=== PATIENT | male | born 1945 | race Caucasian/White ===

== ENCOUNTER 2019-08-03 21:44 | Emergency (ER) | payer MEDICARE, OTHER ==
[~2019-08-03] VITALS: Ht 188 cm; Wt 110.2 kg
[~2019-08-03 21:44] MED LIST: ACDPT PO; ALBU8.5H2 IH; ALLP100T PO; ASP81TEC PO; ATEN-158 PO; ATR20T PO; CHOL10003 PO; CHOL2000 PO; CPAP; CYAN10007 PO; EZET10TA5 PO; FENO145T2 PO; INSU100C4 SQ; INSU100I23 SQ; ISM30TCR PO; LISI1TAB10 PO; LUTE20TA PO; METO-351 PO; MULT-178 PO; OMEG1CAP51 PO; TRM50T PO
--- NOTE | 2019-08-03 22:06 | ED Lower Extremity ---
General Chief Complaint: Lower Extremity Stated Complaint: LEFT LEG SWOLLEN Nursing Triage Note: PT AMB TO [facility] 6 WITH COMPLAINT OF LEFT LEG SWELLING. STATES SWELLING HAS BEEN GOING ON FOR ROUGHLY TWO WEEKS. STATES SWELLING INCREASED TONIGHT AFTER WALKING AROUND. Nursing Sepsis Screen: No Definite Risk Source: patient, spouse Exam Limitations: no limitations History of Present Illness Date Seen by Provider: Aug 03, 2019 Time Seen by Provider: 21:52 Initial Comments Patient presents to ER by private conveyance with chief complaint of 2 weeks of increased swelling worse with gravity better when put up in his left leg. This is tender. He has diabetes and decreased sensation in his feet as well as some chronic loss of the arches. No wounds on his feet. No history of heart failure or swelling in his right leg. No shortness of breath or chest pain. No recent surgeries, periods of immobilization or trauma. No history of clots. 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 He takes medications as prescribed. He has not seen anybody about this yet. Allergies and Home Medications Allergies Coded Allergies: No Known Drug Allergies (Unverified , 09/28/12) Home Medications Acetaminophen/Diphenhydramine 1 Ea Tab, 2 TAB PO HS, (Reported) Allopurinol 100 Mg Tab, 100 MG PO DAILY @ 1200, (Reported) Atorvastatin 20 Mg Tablet, 20 MG PO DAILY @ 1200, (Reported) Cholecalciferol (Vitamin D3) 2,000 Unit Capsule, 2,000 UNIT PO DAILY@1200, (Reported) Fenofibrate,Micronized 145 Mg Tablet, 145 MG PO DAILY @ 1200, (Reported) Hctz/Lisinopril 1 Tab Tablet, 1 TAB PO DAILY @ 1200, (Reported) 20-25MG TABLET Insulin Glargine,Hum.rec.anlog 300 Units/3 Ml Soln, 80 UNITS SQ HS, (Reported) Insulin Human Lispro 300 U/3 Ml Insuln.pen, 15 UNITS SQ BREAKFAST AND LUNCH, (Reported) Insulin Human Lispro 300 U/3 Ml Insuln.pen, 25 UNITS SQ WITH DINNER, (Reported) Metoprolol Succinate 25 Mg Tab.er.24h, 25 MG PO DAILY@1200, (Reported) Multivitamin 1 Each Tablet, 1 EACH PO DAILY@1200, (Reported) Patient Home Medication List Home Medication List Reviewed: Yes Review of Systems Constitutional: No chills, No diaphoresis EENTM: No ear discharge, No hearing loss Respiratory: No cough, No short of breath Cardiovascular: No chest pain, No edema Gastrointestinal: No abdominal pain, No constipation, No diarrhea Genitourinary: No discharge, No dysuria Past Oxwkxnj-Gmogrm-Gcfzyp Hx Patient Social History Alcohol Use: Occasionally Uses Alcohol Beverage of Choice: Beer Recreational Drug Use: No Smoking Status: Former Smoker Recent Foreign Travel: No Contact w/Someone Who Travel: No Recent Infectious Disease Expo: No Physical Abuse: No Sexual Abuse: No Mistreated: No Fear: No Immunizations Up To Date Date of Pneumonia Vaccine: Nov 05, 2012 Date of Influenza Vaccine: Jan 11, 2014 Past Medical History Surgeries: Yes (TURP, QUAD BYPASS, RIGHT HIP FX, LEFT KNEE SCOPE, ) Cardiac, CABG, Orthopedic Respiratory: Yes (SLEEP APNEA-CPAP) Sleep Apnea Cardiac: Yes (CABG-HEART ATTACK) Chronic Edema/Swelling, Coronary Artery Disease, High Cholesterol, Hypertension Neurological: No Genitourinary: Yes Prostate Problems, Kidney Stones Gastrointestinal: No Musculoskeletal: Yes Arthritis, Gout Endocrine: Yes Diabetes, Insulin dep Cataract, Glaucoma Cancer: No Psychosocial: No Integumentary: No Blood Disorders: Yes (ITP) Family Medical History Cancer of colon 03 MOTHER Physical Exam Vital Signs Vital Signs - First Documented 08/03/19 21:49 Temp 98.2 Pulse 73 Resp 16 B/P (MAP) 153/81 (105) Pulse Ox 95 O2 Delivery Room Air Capillary Refill : Less Than 3 Seconds Height, Weight, BMI Height: 6'2.00" Weight: 243lbs. 8.0oz. [id number]; 34.99 BMI Method:Stated General Appearance: WD/WN, no apparent distress HEENT: PERRL/EOMI, pharynx normal Cardiovascular: normal peripheral pulses, regular rate, rhythm Respiratory: lungs clear, normal breath sounds, no respiratory distress, no accessory muscle use Gastrointestinal: normal bowel sounds, non tender, soft Legs: left leg bone tenderness (medial malleolus), left leg soft tissue tenderness, left leg swelling Knees: bilateral knee non-tender, bilateral knee normal inspection, bilateral knee normal range of motion, bilateral knee no evidence of injury Feet: bilateral foot non-tender; right foot normal inspection; bilateral foot normal range of motion, bilateral foot no evidence of injury; left foot swelling Neurologic/Tendon: normal sensation, normal motor functions, normal tendon functions, responds to pain, no evidence tendon injury Neurologic/Psychiatric: alert, normal mood/affect, oriented x 3 Skin: normal color, warm/dry Progress/Results/Core Measures Results/Orders Lab Results Laboratory Tests Test 08/03/19 21:55 Range/Units White Blood Count 10.7 4.3-11.0 10^3/uL Red Blood Count 4.90 4.35-5.85 10^6/uL Hemoglobin 15.7 13.3-17.7 G/DL Hematocrit 46 40-54 % Mean Corpuscular Volume 93 80-99 FL Mean Corpuscular Hemoglobin 32 25-34 PG Mean Corpuscular Hemoglobin Concent 34 32-36 G/DL Red Cell Distribution Width 14.2 10.0-14.5 % Platelet Count 95 L 130-400 10^3/uL Mean Platelet Volume 13.7 H 7.4-10.4 FL Neutrophils (%) (Auto) 67 42-75 % Lymphocytes (%) (Auto) 20 12-44 % Monocytes (%) (Auto) 10 0-12 % Eosinophils (%) (Auto) 2 0-10 % Basophils (%) (Auto) 0 0-10 % Neutrophils # (Auto) 7.2 1.8-7.8 X 10^3 Lymphocytes # (Auto) 2.2 1.0-4.0 X 10^3 Monocytes # (Auto) 1.1 H 0.0-1.0 X 10^3 Eosinophils # (Auto) 0.2 0.0-0.3 10^3/uL Basophils # (Auto) 0.0 0.0-0.1 10^3/uL D-Dimer 0.39 0.00-0.49 UG/ML Sodium Level 140 135-145 MMOL/L Potassium Level 4.2 3.6-5.0 MMOL/L Chloride Level 107 98-107 MMOL/L Carbon Dioxide Level 21 21-32 MMOL/L Anion Gap 12 5-14 MMOL/L Blood Urea Nitrogen 39 H 7-18 MG/DL Creatinine 1.61 H 0.60-1.30 MG/DL Estimat Glomerular Filtration Rate 42 BUN/Creatinine Ratio 24 Glucose Level 130 H 70-105 MG/DL Uric Acid 5.2 2.6-7.2 MG/DL Calcium Level 9.1 8.5-10.1 MG/DL Corrected Calcium 9.0 8.5-10.1 MG/DL Total Bilirubin 0.4 0.1-1.0 MG/DL Aspartate Amino Transf (AST/SGOT) 23 5-34 U/L Alanine Aminotransferase (ALT/SGPT) 22 0-55 U/L Alkaline Phosphatase 72 40-136 U/L C-Reactive Protein High Sensitivity 0.19 0.00-0.50 MG/DL Total Protein 6.9 6.4-8.2 GM/DL Albumin 4.1 3.2-4.5 GM/DL My Orders Orders - SANTOS BUCHANAN Cbc With Automated Diff (08/03/19 22:04) Comprehensive Metabolic Panel (08/03/19 22:04) Ankle, Left, 3 Views (08/03/19 22:04) Fibrin Degradation Products (08/03/19 22:04) Hs C Reactive Protein (08/03/19 22:04) Uric Acid (08/03/19 22:04) Aspirin Chewable Tablet (Baby Aspirin Ch (08/03/19 22:08) Vital Signs/I&O 08/03/19 21:49 Temp 98.2 Pulse 73 Resp 16 B/P (MAP) 153/81 (105) Pulse Ox 95 O2 Delivery Room Air 2 Blood Pressure Mean: 105 Progress Progress Note : Time: 23:00 Progress Note Normal-appearing x-ray of the left ankle. No evidence of DVT based on a negative d-dimer. Occult injury secondary to decreased sensation secondary to diabetes versus gravity dependent edema secondary to venous insufficiency? Be reasonable for him to follow-up with primary care to discuss various avenues of workup. We have mentioned possibly podiatry since he does have fallen arches. Her going to wrap his leg with Georges bandage and instructed to keep his leg up to help keep the swelling down. Diagnostic Imaging Diagonstic Imaging: Xray Plain Films/CT/US/NM/MRI: ankle (Left) Comments No acute osseous abnormality. Reviewed: Reviewed by Me Departure Impression Primary Impression: Left ankle swelling Disposition: HOME, SELF-CARE Condition: Stable Departure-Patient Inst. Decision time for Depature: 23:01 Referrals: DIAMOND VILLALOBOS DO (PCP/Family) Primary Care Physician Patient Instructions: Dependent Edema (DC) Add. Discharge Instructions: Keep leg wrapped with an Georges bandage starting from the foot and working your way up when not elevating your ankle. Plan to follow up with primary care in the next couple weeks for reevaluation and management. Prednisone 20 mg twice daily for the next 5 days. Plan to follow up with Dr. Jaime, podiatry. All discharge instructions reviewed with patient and/or family. Voiced understanding. Scripts Prednisone (Prednisone) 20 Mg Tab 20 MG PO BID for 5 Days, #10 TAB 0 Refills Prov: SANTOS BUCHANAN 08/03/19 SANTOS BUCHANAN Aug 03, 2019 22:06
[2019-08-03] MEDS ORDERED: ASPIRIN 81 MG CHEW (CHILDREN'S ASA) ONE (22:08)
[2019-08-03 22:11] LABS: BASOPHILS % (AUTO) 0 % (0-10); EOSINOPHILS # (AUTO) 0.2 10^3/uL (0.0-0.3); EOSINOPHILS % (AUTO) 2 % (0-10); HEMATOCRIT 46 % (40-54); HEMOGLOBIN 15.7 G/DL (13.3-17.7); LYMPHOCYTES # (AUTO) 2.2 X 10^3 (1.0-4.0); LYMPHOCYTES % (AUTO) 20 % (12-44); MEAN CORPUSCULAR HEMOGLOBIN 32 PG (25-34); MEAN CORPUSCULAR HGB CONC 34 G/DL (32-36); MEAN CORPUSCULAR VOLUME 93 FL (80-99); MEAN PLATELET VOLUME 13.7 FL (7.4-10.4); MONOCYTES # (AUTO) 1.1 X 10^3 (0.0-1.0); MONOCYTES % (AUTO) 10 % (0-12); NEUTROPHILS # (AUTO) 7.2 X 10^3 (1.8-7.8); NEUTROPHILS % (AUTO) 67 % (42-75); PLATELET COUNT 95 10^3/uL (130-400); RED CELL DISTRIBUTION WIDTH 14.2 % (10.0-14.5); WHITE BLOOD COUNT 10.7 10^3/uL (4.3-11.0)
[2019-08-03 22:25] LABS: ALBUMIN 4.1 GM/DL (3.2-4.5); CALCIUM 9.1 MG/DL (8.5-10.1); CREATININE SERUM 1.61 MG/DL (0.60-1.30); POTASSIUM 4.2 MMOL/L (3.6-5.0); TOTAL PROTEIN 6.9 GM/DL (6.4-8.2); URIC ACID 5.2 MG/DL (2.6-7.2)
[2019-08-03 22:42] LABS: BILIRUBIN,TOTAL 0.4 MG/DL (0.1-1.0)
[2019-08-03] MEDS ORDERED: PRD20T PO (23:12)
[2019-08-03 23:16] VITALS: BP 113/70
--- NOTE | 2019-08-04 05:52 | Diagnostic Imaging Report ---
EXAMINATION: Left ankle INDICATION: Ankle pain and swelling Three views were obtained. There are no prior studies available for comparison. There is no fracture, dislocation or acute bony abnormality evident. The ankle mortise is not widened and the talar dome is smooth. There is mild soft tissue edema along the medial aspect of the ankle joint. Incidental note is made of surgical clips in the soft tissues medial to the mid/distal tibia. There is also a prominent calcaneal spur. IMPRESSION: There is no evidence for an acute bony abnormality. Dictated by: Dictated on workstation # [id number]
== END 2019-08-03 23:18 | disposition home or self-care (01) ==
LOC: EDUNIT# 21:44 → ER 21:45
DX: M79.89 Other specified soft tissue disorders (principal); E11.9 Type 2 diabetes mellitus without complications; G47.30 Sleep apnea, unspecified; I25.2 Old myocardial infarction; I10 Essential (primary) hypertension; E78.00 Pure hypercholesterolemia, unspecified; I25.10 Atherosclerotic heart disease of native coronary artery without angina pectoris; Z87.442 Personal history of urinary calculi; Z79.4 Long term (current) use of insulin; Z87.891 Personal history of nicotine dependence; Z95.1 Presence of aortocoronary bypass graft; Z80.0 Family history of malignant neoplasm of digestive organs
CPT/HCPCS: 36415; 73610; 80053; 84550; 85025; 85379; 86141

== ENCOUNTER 2019-10-04 12:47 | Outpatient (RCR) | payer MEDICARE ==
[~2019-10-04 12:47] MED LIST changes: +PRD20T PO
== END 2020-01-02 | disposition home or self-care (01) ==
PROVIDERS: ATTEND Internal Medicine
DX: I89.0 Lymphedema, not elsewhere classified (principal); Z98.890 Other specified postprocedural states

== ENCOUNTER 2022-01-18 21:41 | Emergency (ER) | payer MEDICARE ==
[~2022-01-18] VITALS: Ht 180.3 cm; Wt 106.6 kg
[2022-01-18 21:42] VITALS: BP 120/73
[2022-01-18 22:08] LABS: EOSINOPHILS % (AUTO) 0 % (0-10); MONOCYTES # (AUTO) 0.7 10^3/uL (0.0-1.0); MONOCYTES % (AUTO) 9 % (0-12)
[2022-01-18 22:10] LABS: BASOPHILS % (AUTO) 0 % (0-10); HEMATOCRIT 45 % (40-54); HEMOGLOBIN 15.2 g/dL (13.3-17.7); LYMPHOCYTES # (AUTO) 0.3 10^3/uL (1.0-4.0); LYMPHOCYTES % (AUTO) 4 % (12-44); MEAN CORPUSCULAR HEMOGLOBIN 31 pg (25-34); MEAN CORPUSCULAR HGB CONC 34 g/dL (32-36); MEAN CORPUSCULAR VOLUME 93 fL (80-99); MEAN PLATELET VOLUME 13.2 fL (9.0-12.2); NEUTROPHILS # (AUTO) 6.6 10^3/uL (1.8-7.8); NEUTROPHILS % (AUTO) 86 % (42-75); PLATELET COUNT 76 10^3/uL (130-400); WHITE BLOOD COUNT 7.7 10^3/uL (4.3-11.0)
[2022-01-18 22:10] LABS: BILIRUBIN,URINE NEGATIVE (NEGATIVE); CLARITY,URINE CLEAR; COLOR,URINE YELLOW; GLUCOSE, URINE (UA) NEGATIVE (NEGATIVE); KETONES,URINE NEGATIVE (NEGATIVE); LEUKOCYTE ESTERASE ,URINE NEGATIVE (NEGATIVE); NITRITE,URINE NEGATIVE (NEGATIVE); PROTEIN,URINE TRACE (NEGATIVE)
[2022-01-18 22:16] LABS: BACTERIA,URINE NEGATIVE /HPF; WBC,URINE 0-2 /HPF
[2022-01-18 22:20] LABS: ALBUMIN 4.1 GM/DL (3.2-4.5); POTASSIUM 4.2 MMOL/L (3.6-5.0)
[2022-01-18 22:22] LABS: CALCIUM 9.1 MG/DL (8.5-10.1)
[2022-01-18 22:23] LABS: TOTAL PROTEIN 7.1 GM/DL (6.4-8.2)
[2022-01-18 22:24] LABS: LYMPHOCYTES % (MANUAL) 9 %; MONOCYTES % (MANUAL) 5 %; NEUTROPHILS % (MANUAL) 86 %; RBC MORPH NORMAL
[2022-01-18 22:25] LABS: BILIRUBIN,TOTAL 0.7 MG/DL (0.1-1.0)
--- NOTE | 2022-01-18 22:25 | ED General ---
General Chief Complaint: General Problems/Pain Stated Complaint: WEAKNESS, FALL Source of Information: Patient Exam Limitations: No Limitations (WILLOW BARBOZA APRN) History of Present Illness Date Seen by Provider: Jan 18, 2022 Time Seen by Provider: 22:21 Initial Comments To ER by [facility] from home with reports of general weakness. He has been feeling ill with joint pain cough and nasal congestion for about 1 week. He had a negative Covid test 2 to 3 days ago. He followed up with Dr. Villalobos and is on an antibiotic as well as some cough medication. He denies any abdominal pain. This evening while at home he fell and was unable to get up. His is too petite to help him up. He did not injure himself but reports general weakness and he is afraid of going home given his degree of weakness. Timing/Duration: 1-2 Days Severity: Moderate Associated Systoms: Cough (WILLOW BARBOZA APRN) Allergies and Home Medications Allergies Coded Allergies: No Known Drug Allergies (Unverified , 09/28/12) Patient Home Medication List Home Medication List Reviewed: Yes (WILLOW BARBOZA APRN) Acetaminophen/Diphenhydramine (Tylenol Pm) 1 Ea Tab, 2 TAB PO HS, (Reported) Entered as Reported by: STEPH ALBRECHT on 01/07/14 161 Allopurinol (Zyloprim) 100 Mg Tab, 100 MG PO DAILY @ 1200, (Reported) Entered as Reported by: REAGAN BABCOCK on 09/28/122022 Atorvastatin (Lipitor 20MG) 20 Mg Tablet, 20 MG PO DAILY @ 1200, (Reported) Entered as Reported by: REAGAN BABCOCK on 09/28/122022 Cholecalciferol (Vitamin D3) (Vitamin D) 2,000 Unit Capsule, 2,000 UNIT PO DAILY@1200, (Reported) Entered as Reported by: CLARIBEL CHOW on 02/02/16 0924 Fenofibrate,Micronized (Tricor) 145 Mg Tablet, 145 MG PO DAILY @ 1200, (Reported) Entered as Reported by: REAGAN BABCOCK on 09/28/122020 Hctz/Lisinopril (Lisinopril-Hctz 20-25MG Tab) 1 Tab Tablet, 1 TAB PO DAILY @ 1200, (Reported) Entered as Reported by: REAGAN BABCOCK on 09/28/122020 Insulin Glargine,Hum.rec.anlog (Lantus) 300 Units/3 Ml Soln, 80 UNITS SQ HS, (Reported) Entered as Reported by: REAGAN BABCOCK on 09/28/122024 Insulin Human Lispro (Humalog Pen) 300 U/3 Ml Insuln.pen, 15 UNITS SQ BREAKFAST AND LUNCH, (Reported) Entered as Reported by: DELANEY CLAIRE on 09/29/1231 Insulin Human Lispro (Humalog Pen) 300 U/3 Ml Insuln.pen, 25 UNITS SQ WITH DINNER, (Reported) Entered as Reported by: DELANEY CLAIRE on 09/29/1231 Metoprolol Succinate (Toprol Xl) 25 Mg Tab.er.24h, 25 MG PO DAILY@1200, ( Reported) Entered as Reported by: CLARIBEL CHOW on 02/02/16 0924 Multivitamin (Multiple Vitamins) 1 Each Tablet, 1 EACH PO DAILY@1200, (Reported) Entered as Reported by: CLARIBEL CHOW on 02/02/16 0924 Prednisone (Prednisone) 20 Mg Tab, 20 MG PO BID Prescribed by: SANTOS BUCHANAN on 08/03/19 2312 Review of Systems Review of Systems Constitutional: see HPI EENTM: see HPI Respiratory: see HPI, cough Cardiovascular: no symptoms reported Genitourinary: no symptoms reported Musculoskeletal: see HPI, joint pain Skin: no symptoms reported Psychiatric/Neurological: No Symptoms Reported Hematologic/Lymphatic: No Symptoms Reported Immunological/Allergic: no symptoms reported (WILLOW BARBOZA APRN) Past Ccjsnru-Cqyupn-Nhxheg Hx Past Medical History Surgeries: Yes (TURP, QUAD BYPASS, RIGHT HIP FX, LEFT KNEE SCOPE, ) Cardiac, CABG, Orthopedic Respiratory: Yes (SLEEP APNEA-CPAP) Sleep Apnea Cardiac: Yes (CABG-HEART ATTACK) Chronic Edema/Swelling, Coronary Artery Disease, High Cholesterol, Hypertension Neurological: No Genitourinary: Yes Prostate Problems, Kidney Stones Gastrointestinal: No Musculoskeletal: Yes Arthritis, Gout Endocrine: Yes Diabetes, Insulin dep Cataract, Glaucoma Cancer: No Psychosocial: No Integumentary: No Blood Disorders: Yes (ITP) (WILLOW BARBOZA APRN) Family Medical History Cancer of colon 03 MOTHER Physical Exam Vital Signs Vital Signs - First Documented (BRUEGGEMANN,SENIA T MD) Vital Signs Capillary Refill : (WILLOW BARBOZA APRN) Height, Weight, BMI Height: 6'2.00" Weight: 243lbs. 8.0oz. 110.392959kr; 34.99 BMI Method:Stated General Appearance: No Apparent Distress, WD/WN Eyes: Right Eye Other (There is a right eye subconjunctival hemorrhage); Left Eye Normal Inspection; Bilateral Eye PERRL HEENT: PERRL/EOMI, TMs Normal Neck: Full Range of Motion, Normal Inspection Respiratory: Normal Breath Sounds, No Accessory Muscle Use, No Respiratory Distress Cardiovascular: Regular Rate, Rhythm, Normal Peripheral Pulses Gastrointestinal: Normal Bowel Sounds, Non Tender, Soft Extremity: Normal Capillary Refill, Normal Inspection Neurologic/Psychiatric: Alert, Oriented x3 Skin: Normal Color, Warm/Dry (WILLOW BARBOZA APRN) Progress/Results/Core Measures Suspected Sepsis SIRS Temperature: Pulse: Respiratory Rate: Laboratory Tests 01/18/22 22:00: White Blood Count 7.7 Blood Pressure / Mean: Laboratory Tests 01/18/22 22:00: Creatinine 1.42H, INR Comment 1.0, Platelet Count 76L, Total Bilirubin 0.7 (WILLOW BARBOZA APRN) Results/Orders Lab Results Laboratory Tests Test 01/18/22 21:57 01/18/22 22:00 01/18/22 22:13 Range/Units Urine Color YELLOW Urine Clarity CLEAR Urine pH 6.0 5-9 Urine Specific [place] 1.025 H 1.016-1.022 Urine Protein TRACE H NEGATIVE Urine Glucose (UA) NEGATIVE NEGATIVE Urine Ketones NEGATIVE NEGATIVE Urine Nitrite NEGATIVE NEGATIVE Urine Bilirubin NEGATIVE NEGATIVE Urine Urobilinogen 0.2 < = 1.0 MG/DL Urine Leukocyte Esterase NEGATIVE NEGATIVE Urine RBC (Auto) TRACE-I H NEGATIVE Urine RBC NONE /HPF Urine WBC 0-2 /HPF Urine Squamous Epithelial Cells NONE /HPF Urine Renal Epithelial Cells NONE /HPF Urine Crystals NONE /LPF Urine Bacteria NEGATIVE /HPF Urine Casts NONE /LPF Urine Mucus NEGATIVE /LPF Urine Culture Indicated NO White Blood Count 7.7 4.3-11.0 10^3/uL Red Blood Count 4.87 4.30-5.52 10^6/uL Hemoglobin 15.2 13.3-17.7 g/dL Hematocrit 45 40-54 % Mean Corpuscular Volume 93 80-99 fL Mean Corpuscular Hemoglobin 31 25-34 pg Mean Corpuscular Hemoglobin Concent 34 32-36 g/dL Red Cell Distribution Width 13.3 10.0-14.5 % Platelet Count 76 L 130-400 10^3/uL Mean Platelet Volume 13.2 H 9.0-12.2 fL Immature Granulocyte % (Auto) 0 % Neutrophils (%) (Auto) 86 H 42-75 % Lymphocytes (%) (Auto) 4 L 12-44 % Monocytes (%) (Auto) 9 0-12 % Eosinophils (%) (Auto) 0 0-10 % Basophils (%) (Auto) 0 0-10 % Neutrophils # (Auto) 6.6 1.8-7.8 10^3/uL Lymphocytes # (Auto) 0.3 L 1.0-4.0 10^3/uL Monocytes # (Auto) 0.7 0.0-1.0 10^3/uL Eosinophils # (Auto) 0.0 0.0-0.3 10^3/uL Basophils # (Auto) 0.0 0.0-0.1 10^3/uL Immature Granulocyte # (Auto) 0.0 0.0-0.1 10^3/uL Neutrophils % (Manual) 86 % Lymphocytes % (Manual) 9 % Monocytes % (Manual) 5 % Percent Immature Platelet Fraction 13.8 H 0.0-7.6 % Blood Morphology Comment NORMAL Prothrombin Time 14.0 12.2-14.7 SEC INR Comment 1.0 0.8-1.4 Sodium Level 135 135-145 MMOL/L Potassium Level 4.2 3.6-5.0 MMOL/L Chloride Level 101 98-107 MMOL/L Carbon Dioxide Level 22 21-32 MMOL/L Anion Gap 12 5-14 MMOL/L Blood Urea Nitrogen 27 H 7-18 MG/DL Creatinine 1.42 H 0.60-1.30 MG/DL Estimat Glomerular Filtration Rate 51 BUN/Creatinine Ratio 19 Glucose Level 230 H 70-105 MG/DL Calcium Level 9.1 8.5-10.1 MG/DL Corrected Calcium 9.0 8.5-10.1 MG/DL Magnesium Level 1.8 1.6-2.4 MG/DL Total Bilirubin 0.7 0.1-1.0 MG/DL Aspartate Amino Transf (AST/SGOT) 32 5-34 U/L Alanine Aminotransferase (ALT/SGPT) 26 0-55 U/L Alkaline Phosphatase 61 40-136 U/L Total Protein 7.1 6.4-8.2 GM/DL Albumin 4.1 3.2-4.5 GM/DL Influenza Type A (RT-PCR) Detected H Not Detecte Influenza Type B (RT-PCR) Not Detected Not Detecte SARS-CoV-2 RNA (RT-PCR) Not Detected Not Detecte (SENIA PELAEZ MD) Vital Signs/I&O 01/18/22 01/18/22 21:42 21:42 Temp 37.1 Pulse 93 Resp 18 B/P (MAP) 120/73 (89) Pulse Ox 96 O2 Delivery Room Air Room Air (SENIA PELAEZ MD) Vital Signs/I&O Capillary Refill : (WILLOW BARBOZA APRN) Departure Communication (Admissions) Family Conversation [id number]-was going to admit the patient and had spoken with Dr. Villalobos. I relayed this information to the patient. He states he like to have a walker and try to get up and walk. He was able to do so without assistance. He is adamant that he does not want to be admitted and he wants to go home. NAME: ARTEMIO OSCAR [facility] REC#: [id number] PT STATUS: REG ER : 1945 PHYSICIAN: WILLOW BARBOZA APRN ADMIT DATE: 01/18/22/ER Draft Date of Exam:01/18/22 CHEST 1 VIEW, AP/PA ONLY EXAMINATION: Portable chest. COMPARISON: Prior examination from April 26, 2016. INDICATION: Weakness. FINDINGS: The patient is status post prior sternotomy and bypass grafting. Heart size unchanged. There are chronic interstitial changes within the lungs. There is no alveolar consolidation or pneumonia. There is no effusion. There is no evidence of edema or failure. There is no pneumothorax. IMPRESSION: Stable radiographic appearance of the chest. No new or acute cardiopulmonary process evident. Dictated on workstation # [id number] Dict: 01/18/222234 Trans: 01/18/222236 [facility] [id number] Interpreted by: FIORDALIZA LREMA MD Electronically signed by: (WILLOW BARBOZA APRN) Impression Primary Impression: General weakness Additional Impressions: Upper respiratory infection Influenza A Disposition: 09 ADMITTED INPATIENT Condition: Stable Admissions Decision to Admit Reason: Admit from ER (General) Decision to Admit/Date: Jan 18, 2022 Time/Decision to Admit Time: 22:46 (WILLOW BARBOZA APRN) Departure-Patient Inst. Decision time for Depature: 23:16 (WILLOW BARBOZA APRN) Referrals: DIAMOND VILLALOBOS DO (PCP) Primary Care Physician Patient Instructions: Flu, Adult ED ATTENDING PHYSICIAN NOTE: I was physically present as attending physician in the emergency department during the care of this patient, but I was not directly involved in the decision making or delivery of care for this patient. (SENIA PELAEZ MD) WILLOW BARBOZA APRN Jan 18, 2022 22:25 SENIA PELAEZ MD Jan 19, 2022 08:23
[2022-01-18 22:26] LABS: CREATININE SERUM 1.42 MG/DL (0.60-1.30)
[2022-01-18 22:29] LABS: MAGNESIUM 1.8 MG/DL (1.6-2.4)
--- NOTE | 2022-01-18 22:37 | Diagnostic Imaging Report ---
EXAMINATION: Portable chest. COMPARISON: Prior examination from April 26, 2016. INDICATION: Weakness. FINDINGS: The patient is status post prior sternotomy and bypass grafting. Heart size unchanged. There are chronic interstitial changes within the lungs. There is no alveolar consolidation or pneumonia. There is no effusion. There is no evidence of edema or failure. There is no pneumothorax. IMPRESSION: Stable radiographic appearance of the chest. No new or acute cardiopulmonary process evident. Dictated by: Dictated on workstation # [id number]
== END 2022-01-18 23:48 | disposition other institution (70) ==
LOC: EDUNIT# 21:41 → ER 21:43
DX: R53.1 Weakness (principal); J06.9 Acute upper respiratory infection, unspecified; G47.30 Sleep apnea, unspecified; I25.2 Old myocardial infarction; I10 Essential (primary) hypertension; E11.9 Type 2 diabetes mellitus without complications; M10.9 Gout, unspecified; Z20.822 Contact with and (suspected) exposure to COVID-19; Z79.4 Long term (current) use of insulin; Z79.899 Other long term (current) drug therapy
CPT/HCPCS: 36415; 71045; 80053; 81000; 83735; 85007; 85027; 85610; 87636

== ENCOUNTER → 2022-01-30 | Outpatient (CLI) | payer MEDICARE | LOC: CARD 08:00 | PROVIDERS: ATTEND Internal Medicine | DX: I48.20 Chronic atrial fibrillation, unspecified (principal) | CPT/HCPCS: 93225; 93226 ==